=== PATIENT | female | born 1935 | race Caucasian/White ===

== ENCOUNTER 2020-01-06 09:48 | Observation (INO) | payer MEDICARE, SELFPAY ==
[2020-01-06] VITALS (7 sets, daily range): BP systolic 113–157; BP diastolic 47–65; PULSE 70–78; RESP 13–95; TEMP 36.1–36.7; O2SAT 93–100; BMI 25.9
--- NOTE | ~2020-01-06 | CT_ITS ---
EXAMINATION: CT brain wo con DATE: 01/06/2020 10:56 INDICATION: Altered mental status TECHNIQUE: Computed tomography (CT) of the head was performed without intravenous contrast. The dose- length product was 605.33 mGy-cm. Automated exposure control and iterative reconstruction technique w ere employed. COMPARISON: None FINDINGS: Generalized atrophy. There are scattered moderate periventricular and subcortical white mat ter changes, most likely related to small vessel ischemic disease (microangiopathy). There are chroni c left lacunar infarctions. There is intracranial atherosclerosis. No acute intracranial abnormality. IMPRESSION: 1. No acute intracranial abnormality. 2: Chronic left lacunar infarctions. 3: Chronic age-related findings. Reviewed, dictated and finalized at location B.
--- NOTE | ~2020-01-06 | XR_ITS ---
EXAMINATION: XR chest 1V portable DATE: 01/06/2020 10:51 INDICATION: Altered mental status TECHNIQUE: frontal view of the chest was obtained. COMPARISON: None FINDINGS: To large ringlike opacity projecting over the elevated right hemidiaphragm likely related to material external to the patient calcified nodule also projecting over the elevated diaphragm consistent with old granulomatous disease either in the liver or right lower lobe. No other airspace opacities, pulm onary edema, pleural effusion or pneumothorax. Heart size is normal. Calcified right hilar and subcar inal lymph nodes consistent with old granulomatous disease. Cholecystectomy clips in the right upper quadrant. IMPRESSION: 1. Elevated right hemidiaphragm. Otherwise no acute cardiopulmonary disease. Reviewed, dictated and finalized at location A.
--- NOTE | 2020-01-06 10:28 | ECG_ITS ---
Measurements Intervals [place] Rate: 75 P: 46 IN: 153 QRS: -18 QRSD: 113 T: -12 QT: 450 QTc: 505 Interpretive Statements SINUS RHYTHM POSSIBLE LEFT ATRIAL ENLARGEMENT INCOMPLETE RIGHT BUNDLE BRANCH BLOCK ST-T WAVE ABNORMALITY IN ANTERIOR LEADS- CONSIDER ISCHEMIA ABNORMAL ECG Electronically Signed On 01-06-2020 13:30:17 CDT by Ankush Mc D.O.
--- NOTE | 2020-01-06 10:29 | ED.AMS ---
HPI - Altered Mental Status General Chief Complaint: Altered Mental Status Stated Complaint: AMS Time Seen by Provider: 01/06/20 10:15 Source: EMS Mode of arrival: EMS Limitations: clinical condition History of Present Illness HPI narrative: This is an 84-year-old female that presents the emergency department for altered mental status since this morning. History is limited due to clinical condition. Per EMS patient was found in her room to be lethargic this morning. Patient is usually alert and oriented. Today only awakes to painful stimuli. No known injuries or trauma. Patient has history of hypertension, hypothyroidism, PE and Alzheimer's. MD complaint: altered mental status Onset (ago): hour(s) Timing confirmed by: caregiver Severity: severe Consistency of symptoms: constant Context: unknown Related Data Allergies Allergy/AdvReac Type Severity Reaction Status Date / Time allopurinol Allergy Unknown Verified 01/06/20 10:11 colchicine Allergy Unknown Verified 01/06/20 10:13 estradiol Allergy Unknown Verified 01/06/20 10:11 ibuprofen Allergy Unknown Verified 01/06/20 10:12 meloxicam Allergy Unknown Verified 01/06/20 10:11 naproxen Allergy Unknown Verified 01/06/20 10:12 piroxicam Allergy Unknown Verified 01/06/20 10:12 Review of Systems Review of Systems: ROS unobtainable: Yes unobtainable due to medical condition PMFSH Past Medical History Medical History (Updated 01/06/20 @ 14:42 by Jolanta Kyle PA-C) History of dementia History of hypertension History of hypothyroidism History of pulmonary embolism Exam Narrative: Exam Narrative: GENERAL: Elderly, well-nourished, resting in bed HEAD: Normocephalic, atraumatic. EYES: PERRLA ENT: Nares clear, no rhinorrhea or epistaxis. Mucous membranes moist. Bilateral TMs pearly plata non-bulging NECK: Supple. No adenopathy or masses. CHEST: Clear to auscultation. No respiratory distress. No wheezes rales or rhonchi HEART: Regular rate and rhythm. No murmur heard. Normal peripheral pulses. ABDOMEN: Soft, nontender, nondistended, normal active bowel sounds. EXTREMITIES: Normal range of motion. No edema. Right arm in a sling SKIN: Warm, dry, no rash. NEURO: Patient resting in bed. Will try to move fingers and toes when you ask. Will open her eyes with harsh sternal rub Course Consultations Consultation #1: Spoke with hospitalist about patient and work-up who accepts admission Date: 01/06/20 Time: 14:49 Vital Signs Vital signs: Vital Signs Temperature 97.8 F 01/06/20 09:59 Pulse Rate 74 01/06/20 09:59 Respiratory Rate 13 01/06/20 09:59 Blood Pressure 113/48 L 01/06/20 09:59 Pulse Oximetry 94 01/06/20 09:59 Temperature 97.8 F 01/06/20 09:59 Pulse Rate 72 01/06/20 14:06 Respiratory Rate 95 H 01/06/20 14:06 Blood Pressure 139/65 01/06/20 14:06 Pulse Oximetry 96 01/06/20 14:06 MDM - Altered Mental Status MDM Narrative Medical decision making narrative: Patient presents to the emergency department via EMS for increased lethargy since this morning from a [facility]. Patient recently admitted to [facility] for rehab after a right humerus fracture. Patient's vitals are stable. She is afebrile and nontoxic-appearing. CBC and metabolic panel without concerning changes. Lactic acid is not elevated. UA with possible urinary tract infection. This was sent for a culture. Chest x-ray without acute findings. CT scan of the brain without acute findings. EKG with nonspecific ST changes. Troponin is not elevated. Patient will be admitted for further observation and treatment. Spoke with hospitalist about patient and work-up who accepts admission Lab Data Attestation: I reviewed the patient's lab results. Result diagrams: 01/06/20 12:01 01/06/20 12:01 Labs: Lab Results 01/06/20 01/06/20 01/06/20 Range/Units 12:01 12:01 12:01 WBC 6.9 (4.5-10.0) K/mm3 RBC 4.33 (4.2-5.4) M/mm3 Hgb 1
--- NOTE | 2020-01-06 11:00 | PC.NURSE ---
ohone call to [facility] at approx 1030 requesting med list. at this time no list has arrived via fax. [facility] staff did not know code status of pt or why she recently had rt shoulder surgery.
[2020-01-06 12:07] LABS: Basophils Percent Auto 0.6 % (0.2-1.2); Eosinophils Absolute Auto 0.2 K/mm3 (0-0.3); Eosinophils Percent Auto 2.8 % (0-4.4); Hematocrit 37.9 % (37.0-47.0); Hemoglobin 12.2 g/dL (12.0-15.0); Immature Granulocyte Absolute 0.03 K/mm3 (0.00-0.031); Immature Granulocyte Percent A 0.4 % (0-0.5); Lymphocytes Absolute Auto 1.44 K/mm3 (0.9-3.2); Mean Corpuscular HGB Conc 32.2 g/dl (32-36); Mean Corpuscular Hemoglobin 28.2 pg (26-34); Mean Corpuscular Volume 87.5 fl (80-100); Mean Platelet Volume 8.9 fl (7.4-10.4); Monocytes Absolute Auto 0.4 K/mm3 (0.1-0.6); Monocytes Percent Auto 6.1 % (2.6-8.5); Neutrophils Absolute Auto 4.7 K/mm3 (1.3-6.7); Neutrophils Percent Auto 69.1 % (45.5-73.1); Platelet Count Result 366 k/mm3 (150-375); Red Blood Count 4.33 M/mm3 (4.2-5.4); Red Cell Distribution Width 15.9 % (11.5-14.5); White Blood Count 6.9 K/mm3 (4.5-10.0)
[2020-01-06 12:17] LABS: INR 1.1; Prothrombin Time 13.7 Seconds (11.1-14.7)
[2020-01-06 12:18] LABS: Add Urine Microscopic? YES; Appearance Urine Cloudy (Clear); Bacteria Urine 1+ /hpf; Bilirubin Urine Negative (Negative); Blood Urine Negative (Negative); Color Urine Yellow (Yellow); Glucose Urine UA Negative (Negative); Ketones Urine Negative (Negative); Leukocyte Esterase Ur Trace LEU/UL (Negative); Mucus Urine Rare /lpf; Nitrate Urine Positive (Negative); Protein Urine Negative (Negative); RBC Urine 0-2 /hpf (0-2); Specific Grav Ur 1.013 (1.001-1.035); Squamous Epithelial Cell Urine Few /hpf (Few); Urobilinogen Urine Negative mg/dL (<2.0); WBC Urine 0-3 /hpf
[2020-01-06 12:18] LABS: Partial Thromboplastin Time 24.4 SECONDS (22.3-36.8)
[2020-01-06 12:19] LABS: Alanine Aminotransferase 12 U/L (4-35); Albumin Level 4.1 g/dL (3.5-5.1); Alkaline Phosphatase 109 U/L (38-126); Aspartate Amino Transferase 30 U/L (14-36); Bilirubin,Total 0.7 mg/dL (0.2-1.3); Blood Urea Nitrogen 18 mg/dL (7-17); Calcium 9.2 mg/dL (8.4-10.2); Carbon Dioxide 29 mmol/L (22-30); Chloride 103 mmol/L (98-107); Estimated CRCL calculation 45 ml/min; Estimated Glomerular Filt Rate > 60; Glucose 138 mg/dL (65-105); Magnesium 1.8 mg/dL (1.6-2.3); Phosphorus 3.7 mg/dL (2.5-4.5); Sodium 139 mmol/L (137-145)
[2020-01-06 12:20] LABS: Lactic Acid Reflex 0.8 mmol/L (0.7-2.1)
[2020-01-06 12:21] LABS: Ethanol < 10 mg/dL (<10)
[2020-01-06 12:30] LABS: Troponin I < 0.012 ng/mL (0.000-0.034)
[2020-01-06 12:35] LABS: Amphetamine Screen Urine Negative (Negative); Barbiturate Screen Urine Negative (Negative); Benzodiazepines Screen Urine Negative (Negative); Cannabinoid Screen Urine Negative (Negative); Cocaine Screen Urine Negative (Negative); Methadone Screen Urine Negative (Negative); Opiate Screen Urine Negative (Negative); Phencyclidine Screen Urine Negative (Negative)
[2020-01-06 13:38] LABS: Free T4 Free Thyroxine Reflex 1.11 ng/dL (0.78-2.19)
[2020-01-06 14:25] LABS: Total Triiodothyronine (T3) 0.65 NG/ML (0.97-1.69)
--- NOTE | 2020-01-06 14:30 | PC.NURSE ---
[facility] called again requesting code status and medication list. fax number provided
[2020-01-06] MEDS: SODIUM CHLORIDE 0.9% IV 1,000 ML 999 ML IV CONT (14:40)
--- NOTE | 2020-01-06 15:55 | ADMGEN ---
This patient, Mer Dumont, was admitted to [facility] Surg Room 324-01. Patient/family oriented to hospital policies and general routines including ID bracelet, bed and alarms, visiting hours, pain management, procedures, bathroom and other care routines, personal items, smoking policy, room service/diet, and visiting hours. Valuables list has been completed. Information on how to activate the Rapid Response Team has been discussed. Patient/Family are encouraged to report perceived risks to care and to ask questions if they do not understand what they are told or what they should do.
--- NOTE | 2020-01-06 23:47 | PM.IMHP ---
H&P: HPI History of Present Illness Chief complaint: Altered mental status Narrative: Date and time of patient contact: 01/07/2020 at midnight Mer Dumont is a 84 year old female with a past medical history of dementia who presented to the ER from group home due to altered mental status since the morning. The patient found to be lethargic. She was only waking to painful stimuli. At the time of my evaluation the patient was awake and conversant. She was only oriented to person but was able to carry a simple conversation. She denied having any complaints. She did not remember coming to the hospital. She told me that her name was Mer Eldridge. I suspect that this was her maiden name. She reports that she is a little cold at the time my evaluation pad can provide no further details to why she came to the hospital. She is incontinent of urine and has a depends in place. Patient had a dressing in place on her right shoulder. She had a recent surgery but wound appears to be healing well with no evidence of infection. Source of information is ER records and group home records. Patient is unable to help provide history. Review of Systems Review of Systems: Narrative: Patient was unable to provide review of systems due to her dementia. [facility] Past Medical History Medical History (Updated 01/07/20 @ 02:55 by Ary Butterfield DO) Dementia Diabetes mellitus Essential hypertension Hypothyroidism Pulmonary embolism Surgical History Surgical History (Updated 01/07/20 @ 02:48 by Ary Butterfield DO) History of shoulder surgery Family History Family History Other Unknown family medical history Social History Social History (Updated 01/07/20 @ 02:49 by Ary Butterfield DO) Social History: Primary care physician: Dr. Jagjit Douglas Code status: Full code per state form Smoking status: Never smoker Alcohol intake: unknown Substance use: unknown Gender identity (if verbalized by the patient): Female Spiritual care concerns: No Meds Home Medications and Allergies Home Medications Medication Instructions Recorded Confirmed Type acetaminophen 325 mg PO Q6H PRN 01/06/20 01/06/20 History amlodipine 10 mg PO DAILY 01/06/20 01/06/20 History citalopram See Rx Instructions .ROUTE .COMPLEX 01/06/20 01/06/20 History folic acid 1 mg PO DAILY 01/06/20 01/06/20 History furosemide See Rx Instructions .ROUTE .COMPLEX 01/06/20 01/06/20 History levothyroxine 137 mcg PO DAILY 01/06/20 01/06/20 History metformin 500 mg PO BID 01/06/20 01/06/20 History nitrofurantoin monohyd/m-cryst 100 mg PO DAILY 01/06/20 01/06/20 History nystatin 1 applic TOPICAL PRN PRN 01/06/20 01/06/20 History polyethylene glycol 3350 17 g PO DAILY 01/06/20 01/06/20 History Allergies Allergy/AdvReac Type Severity Reaction Status Date / Time allopurinol Allergy Unknown Verified 01/06/20 10:11 colchicine Allergy Unknown Verified 01/06/20 10:13 estradiol Allergy Unknown Verified 01/06/20 10:11 ibuprofen Allergy Unknown Verified 01/06/20 10:12 meloxicam Allergy Unknown Verified 01/06/20 10:11 naproxen Allergy Unknown Verified 01/06/20 10:12 piroxicam Allergy Unknown Verified 01/06/20 10:12 Vital Signs Vital Signs - 24 hr 01/06/20 09:59 01/06/20 12:00 01/06/20 14:06 Temperature 97.8 F Pulse Rate 74 75 72 Respiratory Rate 13 15 95 H Blood Pressure 113/48 L 124/56 L 139/65 Pulse Oximetry 94 93 96 01/06/20 15:40 01/06/20 17:00 01/06/20 22:00 Temperature 97.0 F L 98.0 F Pulse Rate 70 78 74 Respiratory Rate 14 18 18 Blood Pressure 157/64 H 143/56 H 143/47 H Pulse Oximetry 96 100 96 Exam Narrative: Exam Narrative: PHYSICAL EXAM: WEIGHT 62.4 kg BMI 25.9 General: No acute distress, well-developed well-nourished, elderly HEENT: Mucous membranes are dry, head is normocephalic atraumatic, pupils are equal and reactive, nares patent Neck: No ten
[2020-01-07 04:00] VITALS: PULSE 80
[2020-01-07 06:00] VITALS: BP 132/56; PULSE 84; RESP 18; TEMP 36.7; O2SAT 95
[2020-01-07 08:00] VITALS: PULSE 80; PULSE 90; RESP 16; O2SAT 99
[2020-01-07 12:00] VITALS: PULSE 78
[2020-01-07 14:00] VITALS: BP 130/51; PULSE 90; RESP 16; TEMP 36.4; O2SAT 99
[2020-01-07 14:14] LABS: Glucose Point of Care 125 (65-105)
[2020-01-07] MEDS: metFORMIN HCL 500 MG TABLET PO ×2 (14:37→18:25)
[2020-01-07] MEDS: amLODIPine BESYLATE 5 MG TABLET 10 MG PO (14:38)
[2020-01-07] MEDS: polyethylene glycoL 3350 17 GM POWD.PACK PO (15:00)
[2020-01-07] MEDS: FOLIC ACID 1 MG TABLET PO (15:00)
--- NOTE | 2020-01-07 17:40 | PM.IMPN ---
Progress Note: A&P Assessment and Plan (1) Urinary tract infection: Qualifiers: Hematuria presence: without hematuria Urinary tract infection type: acute cystitis Qualified Code(s): N30.00 - Acute cystitis without hematuria Code(s): N39.0 - Urinary tract infection, site not specified Status: Acute Assessment and Plan: Patient has been placed on empiric antibiotic therapy with Rocephin. And urine cultures are pending (2) Hypothyroidism: Code(s): E03.9 - Hypothyroidism, unspecified Status: Acute Assessment and Plan: Will increase the patient's levothyroxine to 150 mcg daily with TSH elevated at 14. (3) Encephalopathy: Code(s): G93.40 - Encephalopathy, unspecified Status: Acute Assessment and Plan: At this time the patient is conversational and pleasantly confused. I suspect that this may be her baseline. She does not appear to be acutely encephalopathic at the time of my evaluation. And after discussion with her notices her normal (4) Diabetes mellitus: Code(s): E11.9 - Type 2 diabetes mellitus without complications Status: Acute Assessment and Plan: Patient is euglycemic. Will continue home metformin. Will add sliding scale insulin with Accu-Cheks a.c. HS and low-dose sliding scale insulin as needed. Hypoglycemia protocol has been ordered. (5) Right humeral fracture: Code(s): S42.301A - Unspecified fracture of shaft of humerus, right arm, initial encounter for closed fracture Status: Acute Assessment and Plan: Status post repair wound clean and dry Subjective Date/time seen: 01/07/20 17:40 Interval history: Date of visit 01/06. 84-year-old demented hypertensive white female convalescing and [facility] after pair fractured humerus. Transfer to ER for altered mental status because staff could not wake her. in attendance today and states that she will sleep upwards of 20 hours a day if left alone. He relates that she is often very difficult to arouse. Mild pyuria started on ceftriaxone in urine culture pending Exam Narrative: Exam Narrative: Blood pressure 132/56 pulse is 74 regular saturating 95% on room air afebrile Pupils equal reactive to light sclera anicteric Lungs clear CV regular rate rhythm Abdomen soft nontender Extremities without edema distal pulses are 2+ Neuro she is asleep and is very difficult to arouse Objective Data Vital Signs Vital Signs: Vital Signs - 24 hr 01/06/20 20:00 01/06/20 22:00 01/07/20 04:00 Temperature 36.7 C Pulse Rate 74 74 80 Respiratory Rate 18 18 Blood Pressure 143/47 H Pulse Oximetry 96 96 01/07/20 06:00 01/07/20 08:00 01/07/20 14:00 Temperature 36.7 C 36.4 C L Pulse Rate 84 90 90 Respiratory Rate 18 16 16 Blood Pressure 132/56 L 130/51 L Pulse Oximetry 95 99 99 Intake/Output Intake/Output: Intake & Output 01/04/20 01/05/20 01/06/20 01/07/20 23:59 23:59 23:59 23:59 Intake Total 50 510 Balance 50 510 Meds/Results Medications: Active Medications Generic Name Dose Route Start Last Admin Trade Name Freq PRN Reason Stop Dose Admin Acetaminophen 650 mg 01/07/20 02:21 Tylenol Tablet PO Q6H PRN Pain 1-3 Amlodipine Besylate 10 mg 01/07/20 09:00 01/07/20 14:38 Norvasc PO 10 mg DAILY MILI Administration Citalopram Hydrobromide 10 mg 01/07/20 09:00 Celexa BY MOUTH QAM MILI Dextrose 12.5 gm 01/07/20 02:23 Dextrose 50% Syringe IV PUSH PRN PRN Hypoglycemia Protocol Folic Acid 1 mg 01/07/20 09:00 01/07/20 15:00 Folic Acid PO 1 mg DAILY MILI Administration Glucagon 1 mg 01/07/20 02:23 Glucagon For Inj IM PRN PRN Hypoglycemia Protocol Glucose 15 gm 01/07/20 02:23 Glutose 15 PO PRN PRN Hypoglycemia Protocol Dextrose 1,000 mls @ 100 mls/hr 01/07/20 02:23 Dextrose 5% 1,000 Ml IVPB P
[2020-01-07] MEDS: ACETAMINOPHEN 325 MG TABLET 650 MG PO (20:36)
[2020-01-07 21:55] VITALS: BP 116/39; PULSE 86; RESP 18; TEMP 36.4; O2SAT 95
[2020-01-08 04:32] LABS: Glucose Point of Care 129 (65-105)
[2020-01-08 05:53] VITALS: BP 129/51; PULSE 77; RESP 16; TEMP 36.2; O2SAT 95
[2020-01-08 06:46] LABS: Blood Urea Nitrogen 23 mg/dL (7-17); Calcium 8.7 mg/dL (8.4-10.2); Carbon Dioxide 28 mmol/L (22-30); Chloride 103 mmol/L (98-107); Estimated CRCL calculation 40 ml/min; Estimated Glomerular Filt Rate > 60; Glucose 110 mg/dL (65-105); Potassium 3.7 mmol/L (3.4-5.0); Sodium 136 mmol/L (137-145)
[2020-01-08 08:00] VITALS: PULSE 77; RESP 16; O2SAT 95
[2020-01-08 08:37] LABS: Glucose Point of Care 124 (65-105)
[2020-01-08] MEDS: metFORMIN HCL 500 MG TABLET PO ×2 (11:40→18:07)
[2020-01-08] MEDS: amLODIPine BESYLATE 5 MG TABLET 10 MG PO (11:41)
[2020-01-08] MEDS: FOLIC ACID 1 MG TABLET PO (11:42)
[2020-01-08] MEDS: polyethylene glycoL 3350 17 GM POWD.PACK PO (11:42)
[2020-01-08 14:00] VITALS: BP 130/60; PULSE 78; RESP 16; TEMP 36.6; O2SAT 97
[2020-01-08] MEDS: ACETAMINOPHEN 325 MG TABLET 650 MG PO ×2 (17:10→22:53)
--- NOTE | 2020-01-08 17:22 | PM.IMPN ---
Progress Note: A&P Assessment and Plan (1) Urinary tract infection: Qualifiers: Hematuria presence: without hematuria Urinary tract infection type: acute cystitis Qualified Code(s): N30.00 - Acute cystitis without hematuria Code(s): N39.0 - Urinary tract infection, site not specified Status: Acute Assessment and Plan: Patient was placed on empiric antibiotic therapy with Rocephin. And urine cultures growing ESBL Ecoli so changed to ertapenem (2) Hypothyroidism: Code(s): E03.9 - Hypothyroidism, unspecified Status: Acute Assessment and Plan: increased patient's levothyroxine to 150 mcg daily with TSH elevated at 14. (3) Encephalopathy: Code(s): G93.40 - Encephalopathy, unspecified Status: Acute Assessment and Plan: At this time the patient is conversational and pleasantly confused. I suspect that this may be her baseline. She does not appear to be acutely encephalopathic at the time of my evaluation. And after discussion with her notices her normal (4) Diabetes mellitus: Code(s): E11.9 - Type 2 diabetes mellitus without complications Status: Acute Assessment and Plan: Patient is euglycemic. Will continue home metformin. Will add sliding scale insulin with Accu-Cheks a.c. HS and low-dose sliding scale insulin as needed. Hypoglycemia protocol has been ordered. (5) Right humeral fracture: Code(s): S42.301A - Unspecified fracture of shaft of humerus, right arm, initial encounter for closed fracture Status: Acute Assessment and Plan: Status post repair, wound clean and dry resume PT/OT Subjective Date/time seen: 01/08/20 17:22 Interval history: Date of visit 01/07. 84-year-old demented hypertensive white female convalescing in custodial after fractured humerus. Transfer to ER for altered mental status because staff could not wake her. in attendance and states that she will sleep upwards of 20 hours a day if left alone. He relates that she is often very difficult to arouse. Mild pyuria started on ceftriaxone i Exam Narrative: Exam Narrative: Blood pressure 130/60 pulse is 78 regular saturating 97% on room air afebrile Pupils equal reactive to light sclera anicteric Lungs clear CV regular rate rhythm Abdomen soft nontender Extremities without edema distal pulses are 2+ Neuro she is awake today and conversent Objective Data Vital Signs Vital Signs: Vital Signs - 24 hr 01/07/20 21:55 01/08/20 05:53 01/08/20 08:00 Temperature 36.4 C L 36.2 C L Pulse Rate 86 77 77 Respiratory Rate 18 16 16 Blood Pressure 116/39 L 129/51 L Pulse Oximetry 95 95 95 01/08/20 14:00 Temperature 36.6 C Pulse Rate 78 Respiratory Rate 16 Blood Pressure 130/60 Pulse Oximetry 97 Intake/Output Intake/Output: Intake & Output 01/05/20 01/06/20 01/07/20 01/08/20 23:59 23:59 23:59 23:59 Intake Total 50 800 360 Balance 50 800 360 Meds/Results Medications: Active Medications Generic Name Dose Route Start Last Admin Trade Name Freq PRN Reason Stop Dose Admin Acetaminophen 650 mg 01/07/20 02:21 01/08/20 16:12 Tylenol Tablet PO 650 mg Q6H PRN Administration Pain 1-3 Amlodipine Besylate 10 mg 01/07/20 09:00 01/08/20 11:41 Norvasc PO 10 mg DAILY MILI Administration Citalopram Hydrobromide 10 mg 01/07/20 09:00 Celexa BY MOUTH QAM MILI Dextrose 12.5 gm 01/07/20 02:23 Dextrose 50% Syringe IV PUSH PRN PRN Hypoglycemia Protocol Folic Acid 1 mg 01/07/20 09:00 01/08/20 11:42 Folic Acid PO 1 mg DAILY MILI Administration Glucagon 1 mg 01/07/20 02:23 Glucagon For Inj IM PRN PRN Hypoglycemia Protocol Glucose 15 gm 01/07/20 02:23 Glutose 15 PO PRN PRN Hypoglycemia Protocol Dextrose 1,000 mls @ 100 mls/hr 01/07/20 02:23 Dextrose 5% 1,000 Ml IVPB PRN PRN Hypogl
[2020-01-08 20:00] VITALS: PULSE 73; RESP 16; O2SAT 93
[2020-01-08 22:00] VITALS: BP 134/51; PULSE 73; RESP 16; TEMP 36.5; O2SAT 93
[2020-01-09 06:00] VITALS: BP 140/60; PULSE 72; RESP 18; TEMP 36.7; O2SAT 95
[2020-01-09] MEDS: ERTAPENEM 1 GM/NS 50 ML 1 GM/50 ML BAG IVPB (08:35)
[2020-01-09] MEDS: polyethylene glycoL 3350 17 GM POWD.PACK PO (08:36)
[2020-01-09] MEDS: metFORMIN HCL 500 MG TABLET PO (08:36)
[2020-01-09] MEDS: amLODIPine BESYLATE 5 MG TABLET 10 MG PO (08:36)
[2020-01-09] MEDS: FOLIC ACID 1 MG TABLET PO (08:36)
[2020-01-09] MEDS: ACETAMINOPHEN 325 MG TABLET 650 MG PO (08:38)
[2020-01-09] MEDS: LEVOTHYROXINE SODIUM 150 MCG TABLET PO (09:37)
[2020-01-09] MEDS: CITALOPRAM HYDROBROMIDE 10 MG TABLET BY MOUTH (09:37)
--- NOTE | 2020-01-17 08:27 | PM.DS ---
DS: Admitting Diagnosis Admitting Diagnosis Admitting Diagnosis: Altered mental status, unspecified DS: Discharge Diagnosis Discharge Diagnosis (1) Urinary tract infection: Qualifiers: Hematuria presence: without hematuria Urinary tract infection type: acute cystitis Qualified Code(s): N30.00 - Acute cystitis without hematuria Code(s): N39.0 - Urinary tract infection, site not specified Status: Acute Assessment and Plan: Patient was placed on empiric antibiotic therapy with Rocephin. And urine cultures growing ESBL Ecoli so changed to ertapenem while here and sensitive to augmentin which was d/ame on (2) Hypothyroidism: Code(s): E03.9 - Hypothyroidism, unspecified Status: Acute Assessment and Plan: increased patient's levothyroxine to 150 mcg daily with TSH elevated at 14. (3) Encephalopathy: Code(s): G93.40 - Encephalopathy, unspecified Status: Acute Assessment and Plan: At this time the patient is conversational and pleasantly confused. I suspect that this may be her baseline and confirms. She does not appear to be acutely encephalopathic at the time of my evaluation. And after discussion with her notices her normal (4) Diabetes mellitus: Code(s): E11.9 - Type 2 diabetes mellitus without complications Status: Acute Assessment and Plan: Patient is euglycemic. Will continue home metformin. Will add sliding scale insulin with Accu-Cheks a.c. HS and low-dose sliding scale insulin as needed. Hypoglycemia protocol has been ordered. (5) Right humeral fracture: Code(s): S42.301A - Unspecified fracture of shaft of humerus, right arm, initial encounter for closed fracture Status: Acute Assessment and Plan: Status post repair, wound clean and dry resume PT/OT here and at [facility] DS: Summary Hospital Course Hospital Course: 84-year-old demented hypertensive lady transferred from nursing decreased level consciousness when they could not awaken her. Here found to have UTI ESBL E coli and treated for the same. relates that she would sleep 20 hours a day if he let her and she is often very difficult to awake . she will receive 10 more days of Augmentin p.o. with the E coli was sensitive to her levothyroxine was increased to 150 mcg also she will continue her physical therapy at the longterm Time Spent with Patient Time attestation: Total time spent providing and/or coordinating discharge services: 35 miutes Exam Narrative: Exam Narrative: Condition on discharge blood pressure 140/60 pulse is 72 saturating 95% room air afebrile lungs clear CV regular rate rhythm abdomen benign extremities right arm in a sling ecchymosis neuro alert conversant but confused and does not recognize her which is her baseline Discharge Plan Discharge Attending physician on discharge: Brandon Pereira Consulting providers: Jolanta Kyle ; Luis Alberto King ; George Stark ; Ankush Mc ; Ary Butterfield Discharging Clinician: Brandon Pereira Patient Disposition: SNF Activity: as tolerated Diet: regular Stand Alone Forms: General Discharge Information Discharge Medications: New Levothyroxine 150 mcg PO DAILY Qty: 30 RF: 0 amoxicillin-pot clavulanate [Augmentin] 875-125 mg tablet 1 tablet PO Q12H Qty: 20 RF: 0 Continued citalopram 40 mg Tablet See Rx Instructions .ROUTE .COMPLEX RF: 0 amlodipine 10 mg Tablet 10 mg PO DAILY RF: 0 folic acid 1 mg Tablet 1 mg PO DAILY RF: 0 furosemide 20 mg Tablet See Rx Instructions .ROUTE .COMPLEX RF: 0 metformin 500 mg Tablet 500 mg PO BID RF: 0 polyethylene glycol 3350 17 gram/dose Powder 17 g PO DAILY RF: 0 acetaminophen 325 mg Tablet 325 mg PO Q6H PRN (Reason: Pain) RF: 0 nystatin 100,000 unit/gram cream 1 applic TOPICAL PRN PRN (Reason: Rash) RF: 0 Dis
== END 2020-01-09 11:55 ==
LOC: ANHED 15:17 → ANH3MEDSUR 16:12
PROVIDERS: Internal Medicine; Physician Assistant; Admitting Provider Family Medicine; Emergency Provider Emergency Medicine; PCP Family Medicine; Visit Provider Internal Medicine
DX: N30.00 Acute cystitis without hematuria (principal); G93.40 Encephalopathy, unspecified; S42.301D Unspecified fracture of shaft of humerus, right arm, subsequent encounter for fracture with routine healing; I10 Essential (primary) hypertension; E03.9 Hypothyroidism, unspecified; E11.9 Type 2 diabetes mellitus without complications; G30.9 Alzheimer's disease, unspecified; F02.80 Dementia in other diseases classified elsewhere, unspecified severity, without behavioral disturbance, psychotic disturbance, mood disturbance, and anxiety; Z86.711 Personal history of pulmonary embolism; Z79.84 Long term (current) use of oral hypoglycemic drugs; Z79.899 Other long term (current) drug therapy
CPT/HCPCS: 36415; 51701; 70450; 71045; 80048; 80053; 80307; 81001; 83605; 83735; 84100; 84439; 84443; 84480; 84484; 85025; 85610; 85730; 87040; 87077; 87086; 87088; 87186; 93005; 96365; 96366; 96374; 96375; 97161; 97165; 99285; A9270; G0378; J0696; J1335; J7030